=== PATIENT | female | born 1970 | race Caucasian/White ===

== ENCOUNTER → 2023-12-13 15:26 | Outpatient (REF) | payer OTHER, SELFPAY | LOC: WDC 15:26 | PROVIDERS: ATTENDING PHYSICIAN Obstetrics & Gynecology Gynecology; FAMILY PHYSICIAN Nurse Practitioner | DX: Z12.31 Encounter for screening mammogram for malignant neoplasm of breast (principal) | CPT/HCPCS: 77063; 77067 ==

== ENCOUNTER 2024-07-27 21:28 | Emergency (ER) | payer OTHER, SELFPAY ==
[2024-07-27 21:37] VITALS: BP 135/77
[2024-07-27] MEDS: ROXICODONE 5 MG PO (22:47)
--- NOTE | 2024-07-27 22:49 | ED.GENMED ---
History of Present Illness
General
Chief Complaint: Fall
Source: patient and spouse
Exam Limitations: none
Time Seen by Provider: 07/27/24 22:26
Nursing documentation reviewed up to this point in time: agreed with
History of Present Illness
History of Present Illness:
Patient is a 54-year-old female who presents to the ER for evaluation of fall. Patient reports she fell down several steps prior to arrival landed on her right ribs. She did hit her head but denies any loss of conscious. She denies any headache.
Her only complaint is right lateral rib pain. She denies any shortness of breath but does have pain with deep breath. She is not on blood thinners. She denies any abdominal pain
Review of Systems
Review of Systems
Allergies reviewed?: Yes
All Other Systems: ROS reviewed and negative except as documented in HPI and ROS
Constitutional: Reports no symptoms
Respiratory: Reports other ( No shortness of breath ; + pain with deep breath )
Cardiac: Reports no symptoms
ABD/GI: Reports no symptoms; Denies abdominal pain, nausea or vomiting
: Reports no symptoms
Musculoskeletal: Denies neck pain
Skin: Reports no symptoms
Neurological: Reports no symptoms; Denies headache
Psychiatric: Reports no symptoms
Phy Exam
General Physical Exam
General Presentation: no apparent distress
General age: appears stated age
General Skin: warm and dry
General Habitus: normal
General Mental: alert
General Hydration: appears well hydrated
Cardiovascular Exam
Cardiovascular Exam: regular rate/rhythm, no murmur and normal peripheral pulses
Pulmonary Exam
Pulmonary Exam: lungs clear, no respiratory distress and other (Normal inspection to right lateral rib however tender to right lateral rib under mid axillary line no crepitus no ecchymosis no abrasions)
Gastrointestinal Exam
Gastrointestinal Exam: soft and other (Normal inspection to abdomen no right upper quadrant tenderness)
Neurological Exam
Neurological Exam: alert and oriented x3
Musculoskeletal Exam
Musculoskeletal Exam: full ROM
Skin Exam
Skin Exam: normal color and warm/dry
Psychiatric Exam
Psychiatric Exam: normal mood/affect
Course
Orders/Labs/Results
Orders:
Orders
07/27/24 21:42
Ribs, Right 3 View W/PA Chest [CR Ribs-right 3 Vw W/pa Chest*] Urgent
Comment:
Reason For Exam: fall down 3 stairs, right rib pain
07/27/24 22:44
Oxycodone [Roxicodone] 5 mg PO NOW STA
07/27/24 22:48
Lidocaine [Lidocaine 4% Patch] 1 patch TOPICAL NOW STA
Apply Lidocaine patch(s) to:: right lateral rib
07/27/24 22:50
Incentive Spirometry [Rx Incentive Spirometry] [RESP] Urgent
Frequency: q1h while awake
Vital Signs
Initial and Last Documented VS:
Initial Vital Signs
Temp Pulse Resp BP Pulse Ox
97.6 F 62 18 135/77 99
07/27/24 21:37 07/27/24 21:37 07/27/24 21:37 07/27/24 21:37 07/27/24 21:37
Last Documented Vital Signs
Temp Pulse Resp BP Pulse Ox
97.6 F 61 18 124/68 98
07/27/24 21:37 07/27/24 23:13 07/27/24 23:13 07/27/24 23:13 07/27/24 23:13
MDM/Problems Addressed
Differential Diagnosis Includes:
Not limited to rib fracture versus contusion
MDM/Problems Addressed:
Symptoms are consistent with rib contusion versus fracture though no acute findings on chest x-ray. Patient's lungs are clear there is no obvious bruising or ecchymosis or crepitus on exam she is not hypoxic nontachypneic. No abdominal tenderness.
She did hit her head but denies any headache she is on blood thinners. No loss of consciousness. Will treat for rib fracture symptoms will DC with deep breathing instructions use of incentive spirometer Aleve(which she has at home) and Tylenol
and pain medication as needed.
*Radiology
Radiology exam reviewed: radiology read reviewed
*Pulse Oximetry
Patient hypoxic: no
*Critical Care Note
Total Time (30-74mins, 75-104mins- exclusive of procedures): Not Applicable
ED Attending Note
-
Portions of this chart may have been created with voice recognition software.� Occasional wrong word or��sound alike� substitutions may have occurred due to the inherent limitations of voice recognition software.
Discharge Plan
Departure
Patient Disposition: Home (Routine Discharge)
Date of Disposition: 07/27/24
Time of Disposition: 22:50
Patient with high blood pressure during this ER visit?: Yes
Condition: Fair
Covid-19: Not Applicable
Discharge Problem:
Contusion of rib
Instructions: Contusion (DC), BLOOD PRESSURE
Prescriptions:
New
oxycodone 5 mg capsule
5 mg PO Q6H PRN (Reason: Pain) Qty: 10 0RF
lidocaine 5 % adhesive patch,medicated
1 patch topical DAILY Qty: 15 0RF
Referrals:
Linda Covarrubias MD [Family Provider] -
Activity Restrictions/Additional Instructions:
As discussed symptoms are consistent with rib contusion versus fracture. You may take naproxen or ibuprofen along with Tylenol as needed however if needed a prescription for pain medication, oxycodone was sent to your pharmacy. Take only as
directed this is a narcotic. This may cause drowsiness. No driving or drug alcohol taking this medication. In addition this may cause constipation. It is recommended to take an [id number] stool softener. In addition a prescription for
lidocaine patch was sent to your pharmacy apply to affected area daily. Remove after 12 hours
Do deep breathing. Use incentive spirometer every hour. Follow-up with your family doctor in the next several days for reevaluation of your symptoms and return if any worsening of symptoms including worsening pain shortness of breath abdominal
pain nausea vomiting or any further concerns.
Interventions
Interventions:
*Risk Screen - Suicide Last Done: 07/27/24 21:28
*General Assessment Last Done: 07/27/24 21:37
*Neglect/Abuse Screening Last Done: 07/27/24 22:15
*Nursing Disposition Last Done: 07/27/24 23:13
ED-Musculoskeletal Assessment Last Done: 07/27/24 22:15
ED- Neurological Assessment Last Done: 07/27/24 22:15
ED-Skin Assessment Last Done: 07/27/24 22:15
Discharge Date and Time
Discharge Date/Time: 07/27/24 23:15
Print Language: DANISH
[2024-07-27] MEDS: LIDOCAINE 4% PATCH 1 PATCH TOPICAL (23:02)
[2024-07-27 23:13] VITALS: BP 124/68
== END 2024-07-27 23:15 | disposition home or self-care (01) ==
LOC: EMR 21:28
PROVIDERS: EMERGENCY PHYSICIAN Emergency Medicine; FAMILY PHYSICIAN Hospitalist
DX: S20.219A Contusion of unspecified front wall of thorax, initial encounter (principal); W10.9XXA Fall (on) (from) unspecified stairs and steps, initial encounter
CPT/HCPCS: 99283; 71101

== ENCOUNTER → 2024-12-18 08:20 | Outpatient (REF) | payer OTHER, SELFPAY | LOC: WDC 08:20 | PROVIDERS: ATTENDING PHYSICIAN Obstetrics & Gynecology Gynecology; FAMILY PHYSICIAN Hospitalist | DX: Z12.31 Encounter for screening mammogram for malignant neoplasm of breast (principal) | CPT/HCPCS: 77063; 77067 ==